=== PATIENT | female | born 2000 | race African-American/Black ===

== ENCOUNTER 2025-05-21 09:43 | Emergency (ER) | payer OTHER, SELFPAY ==
[2025-05-21 09:56] VITALS: BP 130/87; PULSE 91; RESP 16; TEMP 36.9; O2SAT 98
--- NOTE | 2025-05-21 10:11 | ED_ITS ---
HPI - Ear Problem General Chief complaint: Ear Stated complaint: right ear pain Time Seen by Provider: 05/21/25 10:00 Source: patient and RN notes reviewed Mode of arrival: ambulatory Limitations: no limitations History of Present Illness HPI Narrative: 24-year-old female presents [facility] complaining of right ear pain for approximately 2 days. Patient also reports congestion, runny nose, and mouth pain. Patient is any cough, fevers, body aches, chills, chest pain, shortness of breath, nausea, vomiting, abdominal pain, or any other symptoms. She has not tried anything [id number] help with symptoms. Patient reports an like there is a fluid in her right ear. Patient denies any recent swimming. 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 Related Data Home Medications ?Medication ?Instructions ?Recorded ?Confirmed ?Last Taken ?Type ergocalciferol (vitamin D2) 1,250 05/21/25 Unknown History mcg (50,000 unit) capsule trazodone 50 mg tablet mg 05/21/25 Unknown History Allergies Allergy/AdvReac Type Severity Reaction Status Date / Time strawberry Allergy Unknown RASH Verified 05/21/25 09:52 Cat Dander Allergy Unknown RASH Uncoded 05/21/25 09:52 Grass Allergy Unknown RASH Uncoded 05/21/25 09:52 Review of Systems Review of Systems: CONSTITUTIONAL: Denies fever, chills, body aches, or sweats. EYES: Denies visual changes, redness, or discharge. ENT: Positive for rhinorrhea, congestion, mouth pain, or otalgia. Negative for sore throat. CARDIOVASCULAR: Denies chest pain, palpitations, or edema. RESPIRATORY: Negative for cough, wheezing, or dyspnea. GASTROINTESTINAL: Denies abdominal pain, nausea, vomiting, or diarrhea. GENITOURINARY: Denies dysuria or hematuria. SKIN: Denies rash or itching. MUSCULOSKELETAL: Denies back pain, joint pain, or myalgia. NEUROLOGIC: Denies headache, numbness, or weakness. PSYCHIATRIC: Denies anxiety or depression. All other systems reviewed are negative, except as documented in HPI. PMFSH Comments At the time of my signature, I reviewed and agree with the nursing past medical, surgical, social, and family history. There is no relevant family history pertinent to the patient complaint. Exam Narrative: GENERAL: This is a well-nourished, well-developed adult, in no apparent distress. They are non ill-appearing, nontoxic appearing. HEAD: normocephalic, atraumatic. EYES: Sclera clear/white. Vision is grossly intact. Conjunctiva normal bilaterally. Extraocular movements intact. EARS: External ears normal,no tragal tenderness, auditory canals clear and without drainage, left TM without erythema or perforation. Right TM er ythematous, non bulging, with effusion present. Right TM intact. Hearing grossly intact. No mastoid tenderness. NOSE: External nose normal with no obvious nasal discharge, nasal turbinates erythematous, no rhinorrhea. THROAT: Mucous membranes moist, posterior pharynx without redness or swelling, no exudate. Uvula is midline. Postnasal drip present. OROPHARYNX: No gingivitis, dental cavity feeling present through right lower jaw. No gross tooth decay. No swelling or pain on the tongue. Tongue is normal. Suspicious lesions or rashes. NECK: Neck supple, non-tender without lymphadenopathy, masses or thyromegaly. CARDIOVASCULAR: Regular rate and rhythm without murmurs, gallops, or rubs. RESPIRATORY: Clear to auscultation. Breath sounds equal bilaterally. No wheezes, rales, or rhonchi. SKIN: warm, Dry, intact with no suspicious lesions or rash, good texture and turgor. NEURO: awake, alert, and oriented to person, place and time. There were no obvious focal neurologic abnormalities. EXTREMITIES: No joint tenderness, effusion, or edema noted. BACK: Nontender without deformity. Course Course Emergency Course: Portions of this record may have been created with voice recognition software Level of Care: Express Care Visit Vital Signs Vital signs: Vital Signs Temperature 98.4 F 05/21/25 09:56 Pulse Rate 91 05/21/25 09:56 Respiratory Rate 16 05/21/25 09:56 Blood Pressure 130/87 05/21/25 09:56 Pulse Oximetry 98 05/21/25 09:56 Oxygen Delivery Room Air 05/21/25 09:56 Temperature 98.4 F 05/21/25 09:56 Pulse Rate 91 05/21/25 09:56 Respiratory Rate 16 05/21/25 09:56 Blood Pressure 130/87 05/21/25 09:56 Pulse Oximetry 98 05/21/25 09:56 Oxygen Delivery Room Air 05/21/25 09:56 Medical Decision Making MDM Narrative Medical decision making narrative: Appears patient has right-sided otitis media. With amoxicillin. Discussed physical exam findings. Advised supportive measures and signs/symptoms to go to the ER. Pt is appropriate for outpt treatment and f/u. Differential Diagnosis Differential Diagnosis: Upper respiratory infection, viral infection, pharyngitis, otitis media, otitis externa, swimmer's ear Vital Signs Vital Signs: Vital Signs Temperature 98.4 F 05/21/25 09:56 Pulse Rate 91 05/21/25 09:56 Respiratory Rate 16 05/21/25 09:56 Blood Pressure 130/87 05/21/25 09:56 Pulse Oximetry 98 05/21/25 09:56 Oxygen Delivery Room Air 05/21/25 09:56 Temperature 98.4 F 05/21/25 09:56 Pulse Rate 91 05/21/25 09:56 Respiratory Rate 16 05/21/25 09:56 Blood Pressure 130/87 05/21/25 09:56 Pulse Oximetry 98 05/21/25 09:56 Oxygen Delivery Room Air 05/21/25 09:56 Discharge Plan Discharge Clinical Impression: Otitis media Qualifiers: Otitis media type: other nonsuppurative Chronicity: acute Laterality: right Rec urrence: non-recurrent Qualified Code(s): H65.191 - Other acute nonsuppurative otitis media, right ear Patient Disposition: Home Condition: Stable Instructions: Antibiotic Form, Ear Infection (ED) Additional Instructions: Take antibiotics as directed. Recommend antihistamine such as Benadryl, Zyrtec or Divya for sinus congestion Flonase nasal spray, 2 spray in each nostril once daily until symptoms improve Symptomatic treatment includes: rest, fluids, and increase humidity of the air at home. Tylenol or ibuprofen as needed for pain or fevers. Please schedule a follow-up visit with your personal physician for further evaluation and treatment within 3-5days. If your symptoms persist, change or worsen significantly, go to the emergency department for further evaluation. Patient Language: [place] Prescriptions: New amoxicillin 875 mg tablet 875 mg PO Q12H 7 Days Qty: 14 0RF No Action trazodone 50 mg tablet ergocalciferol (vitamin D2) 1,250 mcg (50,000 unit) capsule Follow-up/Referrals: Nitin,Pinky [Other] Time of Disposition: 10:10
== END 2025-05-21 10:17 | disposition home or self-care (01) ==
DX: H65.191 Other acute nonsuppurative otitis media, right ear (principal)
CPT/HCPCS: 99203; G0463